=== PATIENT | female | born 1990 | race African-American/Black ===

== ENCOUNTER 2022-08-05 07:26 | Day surgery (SDC) | payer OTHER ==
[~2022-08-05] VITALS: Ht 167.6 cm; Wt 77.3 kg
[~2022-08-05 07:26] MED LIST: BUPIVACAINE HCL 0.5% 30ML VIAL As Ordered ONE; LIDOCAINE 1% MDV 20ML VIAL As Ordered ONE; NAPR-885 PO; ceFAZolin SOD 2 GM in IV 1 EA IV ONE
[2022-08-05] MEDS ORDERED: LR 1,000 ML IV SCH ×2 (07:45→10:35)
[2022-08-05] MEDS ORDERED: LIDOCAINE 2% 100MG/5ML SDV (FOR ANES.) As Ordered ONE (07:52)
[2022-08-05] MEDS ORDERED: ONDANSETRON 4MG 2ML VIAL As Ordered ONE (07:52)
[2022-08-05] MEDS ORDERED: propofoL 200 MG/20 ML VIAL As Ordered ONE (07:52)
[2022-08-05] MEDS ORDERED: KETOROLAC 60MG 2ML VIAL As Ordered ONE (07:53)
[2022-08-05] MEDS ORDERED: fentaNYL 100 MCG/2 ML INJECTION As Ordered ONE (07:57)
[2022-08-05] MEDS ORDERED: MIDAZOLAM INJ 2MG/2ML VIAL As Ordered ONE (07:57)
[2022-08-05] MEDS ORDERED: ACET1TAB55 PO (08:15)
[2022-08-05] MEDS ORDERED: ACETAMINOPHEN 1000MG 100ML IV BAG As Ordered ONE (09:06)
[2022-08-05] MEDS ORDERED: fentaNYL 100 MCG/2 ML INJECTION IV PRN (10:35)
[2022-08-05] MEDS ORDERED: oxyCODONE 5MG TAB PO PRN (10:35)
[2022-08-05] MEDS ORDERED: ONDANSETRON 4MG 2ML VIAL IV PRN (10:35)
[2022-08-05 10:49] VITALS: BP 114/70
== END 2022-08-05 10:49 | disposition home or self-care (01) ==
LOC: M SDC 07:26
PROVIDERS: ATTEND Podiatrist Foot & Ankle Surgery
DX: T84.84XA Pain due to internal orthopedic prosthetic devices, implants and grafts, initial encounter (principal); Z88.2 Allergy status to sulfonamides; Z88.8 Allergy status to other drugs, medicaments and biological substances
CPT/HCPCS: 20680; 81025; J0131; J0690; J1100; J1885; J2250; J2405; J3010; S0020

== ENCOUNTER → 2023-01-13 | Outpatient (CLI) | payer OTHER ==
[~2023-01-13] MED LIST changes: +ACET1TAB55 PO; -BUPIVACAINE HCL 0.5% 30ML VIAL As Ordered ONE; -LIDOCAINE 1% MDV 20ML VIAL As Ordered ONE; -ceFAZolin SOD 2 GM in IV 1 EA IV ONE
== END ==
LOC: M PLAIMG 13:38
PROVIDERS: ATTEND Nurse Practitioner Family
DX: M25.539 Pain in unspecified wrist (principal); M25.562 Pain in left knee; M54.50 Low back pain, unspecified; M25.551 Pain in right hip; M25.572 Pain in left ankle and joints of left foot; R93.6 Abnormal findings on diagnostic imaging of limbs

== ENCOUNTER → 2023-02-04 | Outpatient (CLI) | payer OTHER | LOC: M PLAIMG 09:32 | PROVIDERS: ATTEND Physician Assistant | DX: M25.572 Pain in left ankle and joints of left foot (principal); D16.32 Benign neoplasm of short bones of left lower limb; R60.0 Localized edema ==